=== PATIENT | male | born 1955 | race Caucasian/White ===

== ENCOUNTER 2018-03-29 11:08 | Emergency (ER) | payer OTHER ==
[~2018-03-29] VITALS: Ht 180.3 cm; Wt 123.8 kg
[2018-03-29 11:15] VITALS: Ht 180.3 cm; Wt 123.8 kg
[2018-03-29 12:31] LABS: BASOPHIL % 0.3 % (0-2); PLATELET COUNT 168 x10^3mcL (130-400)
[2018-03-29 12:47] LABS: CALCIUM 8.9 mg/dL (8.5-10.1); CARBON DIOXIDE 28.7 mmol/L (21-32); CHLORIDE SERUM 103 mmol/L (98-107); CREATININE SERUM 0.9 mg/dL (0.7-1.3); GFR1 > 60 mL/min; GLUCOSE SERUM 100 mg/dL (74-106); POTASSIUM SERUM 4.4 mmol/L (3.5-5.1); SODIUM SERUM 135 mmol/L (136-145)
[2018-03-29 12:51] LABS: ALBUMIN 3.5 g/dL (3.4-5.0); ALKALINE PHOSPHATASE 61 U/L (46-116); ALT/SGPT 31 U/L (16-63); AST/SGOT 21 U/L (15-37); BILIRUBIN TOTAL 0.5 mg/dL (0.20-1.00); LIPASE 274 IU/L (73-393); TOTAL PROTEIN, SERUM 7.5 g/dL (6.4-8.2); TRIGLYCERIDES 133 mg/dL (<150)
[2018-03-29 12:52] LABS: CHOLESTEROL 128 mg/dL (<200); HDL CHOLESTEROL 32 mg/dL (40-60)
[2018-03-29 12:57] LABS: T3 TOTAL 1.18 ng/mL
[2018-03-29 13:03] LABS: UA SPECIFIC GRAVITY 1.015 (1.005-1.035); microscopic required? YES; urine erythrocyte TRACE (NEGATIVE)
[2018-03-29 13:19] LABS: RED CELL DISTRIBUTION WIDTH 15.3 % (11.5-14.5)
[2018-03-29 13:21] LABS: FREE T4 0.99 ng/dL (0.76-1.46); FREE THYROXINE INDEX 2.3 ug/dL (1.4-4.5); T4(THYROXINE) 6.6 ug/dL (4.7-13.3)
[2018-03-29 15:05] VITALS: BP 161/92
== END 2018-03-29 15:05 | disposition home or self-care (01) ==
LOC: ED 11:08
PROVIDERS: Specialist
DX: K43.9 Ventral hernia without obstruction or gangrene (principal); R60.9 Edema, unspecified; I10 Essential (primary) hypertension; F17.210 Nicotine dependence, cigarettes, uncomplicated; Z90.49 Acquired absence of other specified parts of digestive tract; Z98.890 Other specified postprocedural states; Z88.5 Allergy status to narcotic agent; Z88.7 Allergy status to serum and vaccine
CPT/HCPCS: 36415; 83880; 84439; Q0092